=== PATIENT | male | born 1995 | race Two or more races ===

== ENCOUNTER 2018-12-23 02:26 | Emergency (ER) | payer OTHER ==
[~2018-12-23] VITALS: Ht 182.9 cm; Wt 169.6 kg
[2018-12-23] MEDS ORDERED: COZAAR100 MG PO (02:35)
[2018-12-23] MEDS ORDERED: LEVSIN/SL0.125 MG SL (10:10)
[2018-12-23] MEDS ORDERED: INTESTINEX680 M1 PO (10:10)
[2018-12-23] MEDS ORDERED: PEPCID AC20 MG PO (10:10)
[2018-12-23] MEDS ORDERED: AMOX-CLAV 875-1 EACH PO (10:10)
[2018-12-23] MEDS ORDERED: KETO10TA2 PO (10:10)
== END 2018-12-23 10:30 | disposition home or self-care (01) ==
LOC: ER 02:26
DX: K81.0 Acute cholecystitis (principal); R10.11 Right upper quadrant pain